=== PATIENT | male | born 1955 | race Caucasian/White ===

== ENCOUNTER 2017-01-06 08:12 | Emergency (ER) | payer OTHER ==
--- NOTE | 2017-01-06 08:39 | UC ---
Respiratory Complaint HPI - HPI Summary HPI Summary: 61 YO MAKE WITH ONE MONTH HX OF SINUS PRESSURE AND PAIN/POST NASAL DRIP AND RUNNY NOSE NOW WHEEZING AT NIGHT NO F/C NO CP NO SOB - History of Current Complaint Chief Complaint: UCGeneralIllness Stated Complaint: SINUS COMPLAINT Time Seen by Provider: 01/06/17 08:30 Hx Obtained From: Patient Onset/Duration: Gradual Onset, Lasting Weeks Timing: Constant Severity Initially: Mild Severity Currently: Mild Pain Intensity: 3 Pain Scale Used: 0-10 Numeric Character: Cough: Nonproductive Aggravating Factors: Allergens Alleviating Factors: Bronchodilator Associated Signs And Symptoms: Positive: Wheezing, Nasal Congestion, Sinus Discomfort Related History: Seasonal Allergies - Allergies/Home Medications Allergies/Adverse Reactions: Allergies Allergy/AdvReac Type Severity Reaction Status Date / Time No Known Allergies Allergy Verified 01/06/17 08:17 Home Medications: Home Medications Albuterol HFA INHALER* [Ventolin HFA Inhaler*] 2 puff QID PRN 01/06/17 [History Confirmed 01/06/17] Epinephrine [Epipen 2-Italo] 1 inj 01/06/17 [History] PMH/Surg Hx/FS Hx/Imm Hx Cardiovascular History: Hypertension Respiratory History: Bronchitis - Surgical History Surgical History: Yes Surgery Procedure, Year, and Place: tonsillectomy - Social History Alcohol Use: None Substance Use Type: None Smoking Status (MU): Never Smoked Tobacco - Immunization History Most Recent Influenza Vaccination: 2015 Most Recent Tetanus Shot: UTD Most Recent Pneumonia Vaccination: N/A Review of Systems Constitutional: Fatigue Skin: Negative Eyes: Negative ENT: Sore Throat, Nasal Discharge Respiratory: Cough Cardiovascular: Negative Gastrointestinal: Negative Genitourinary: Negative Motor: Negative Neurovascular: Negative Musculoskeletal: Negative Neurological: Negative Psychological: Negative All Other Systems Reviewed And Are Negative: Yes Physical Exam Triage Information Reviewed: Yes Appearance: Well-Appearing, No Pain Distress, Well-Nourished Vital Signs: Initial Vital Signs Temp 96.9 F 01/06/17 08:18 Pulse 99 01/06/17 08:18 Resp 20 01/06/17 08:18 BP 158/91 01/06/17 08:18 Pulse Ox 95 01/06/17 08:18 Vital Signs Reviewed: Yes Eyes: Positive: Conjunctiva Clear ENT: Positive: Hearing grossly normal, Nasal congestion, Nasal drainage, TMs normal. Negative: Tonsillar exudate, Trismus, Muffled/hoarse voice Dental Exam: Normal Neck: Positive: Supple, Nontender, No Lymphadenopathy Respiratory: Positive: No respiratory distress, No accessory muscle use, Wheezing - WITH FORCED EXPIRATION Cardiovascular: Positive: RRR, No Murmur, Pulses Normal. Negative: Tachycardia , Bradycardia Musculoskeletal: Positive: ROM Intact Neurological: Positive: Alert, Muscle Tone Normal Psychological Exam: Normal Skin Exam: Normal UC Diagnostic Evaluation - Laboratory O2 Sat by Pulse Oximetry: 95 - NORMAL/NOT HYPOXIC Respiratory Course/Dx - Differential Dx/Diagnosis Provider Diagnoses: ACUTE SINUSITIS. BRONCHITIS WITH BRONCHOSPASM Discharge - Discharge Plan Condition: Stable Disposition: HOME Prescriptions: Amoxicillin (*) [Amoxicillin 875 MG (*)] 875 mg PO BID #20 tab Prednisone [Deltasone] 40 mg PO DAILY #10 tab Patient Education Materials: Sinusitis (ED), Acute Bronchitis (ED) Referrals: Blair Thomas MD [Primary Care Provider] - 4 Days (IF NOT BETTER)
[2017-01-06 08:48] VITALS: BP 158/91
== END 2017-01-06 08:53 | disposition home or self-care (01) ==
LOC: UCCORT 08:12
DX: J01.90 Acute sinusitis, unspecified (principal); J20.9 Acute bronchitis, unspecified; I10 Essential (primary) hypertension
CPT/HCPCS: 99212; G0463

== ENCOUNTER 2018-02-13 10:50 | Emergency (ER) | payer OTHER ==
[2018-02-13 11:10] VITALS: BP 144/80
--- NOTE | 2018-02-13 11:56 | RAD ---
INDICATION: Left ankle pain. TECHNIQUE: 3 views of the left ankle were obtained. FINDINGS: Soft tissue swelling is noted along the anterolateral aspect of the ankle. No fracture is seen. Joint spaces appear maintained. IMPRESSION: SOFT TISSUE SWELLING, NO FRACTURE IS SEEN.
--- NOTE | 2018-02-13 12:08 | UC ---
Lower Extremity/Ankle HPI - HPI Summary HPI Summary: left ankle pain x 3 weeks cannot recall any injuries , pain became worse yesterday at work + swelling, no redness , - History of Current Complaint Chief Complaint: UCLowerExtremity Stated Complaint: W/C-LFT ANKLE INJURY Time Seen by Provider: 02/13/18 11:13 Hx Obtained From: Patient Onset/Duration: Gradual Onset, Lasting Weeks - 3, Still Present, Worse Since - yesterday Severity Initially: Moderate Severity Currently: Moderate Pain Intensity: 6 Aggravating Factor(s): Standing, Ambulation Alleviating Factor(s): Rest, Elevation, Ice Able to Bear Weight: Yes - Allergies/Home Medications Allergies/Adverse Reactions: Allergies Allergy/AdvReac Type Severity Reaction Status Date / Time No Known Allergies Allergy Verified 02/13/18 11:01 Home Medications: Home Medications Aspirin [Tash Childrens Aspirin] 81 mg PO DAILY 02/13/18 [History Confirmed 05/24] Ibuprofen TAB* [Advil TAB*] 400 mg PO Q12H PRN 02/13/18 [History Confirmed 02/13] PMH/Surg Hx/FS Hx/Imm Hx Cardiovascular History: Hypertension - Surgical History Surgical History: Yes Surgery Procedure, Year, and Place: tonsillectomy, LYMPH NODES REMOVED FROM NECK. - Family History Known Family History: Positive: Hypertension - Social History Alcohol Use: None Substance Use Type: None Smoking Status (MU): Current Every Day Smoker Type: Smokeless Tobacco Amount Used/How Often: 1 can weekly - Immunization History Most Recent Influenza Vaccination: 2016 Most Recent Tetanus Shot: UTD Most Recent Pneumonia Vaccination: N/A Review of Systems Constitutional: Negative Skin: Negative Eyes: Negative ENT: Negative Respiratory: Negative Is Patient Immunocompromised?: No All Other Systems Reviewed And Are Negative: Yes Physical Exam Triage Information Reviewed: Yes Appearance: Well-Appearing, No Pain Distress, Well-Nourished Vital Signs: Initial Vital Signs Temp 97.6 F 02/13/18 11:03 Pulse 99 02/13/18 11:03 Resp 18 02/13/18 11:03 BP 144/80 02/13/18 11:03 Pulse Ox 97 02/13/18 11:03 Vital Signs Reviewed: Yes Eye Exam: Normal Eyes: Positive: Conjunctiva Clear ENT: Positive: Normal ENT inspection, Hearing grossly normal, Pharynx normal Neck exam: Normal Respiratory Exam: Normal Respiratory: Positive: Chest non-tender, Lungs clear, Normal breath sounds Cardiovascular: Positive: RRR, No Murmur, Pulses Normal Musculoskeletal: Positive: Other: - left ankle : + swelling, no erythema, + diffuse tenderness, good ROM on flexion Diagnostics - Laboratory Diagnostic Studies Completed/Ordered: left ankle xray : IMPRESSION: SOFT TISSUE SWELLING, NO FRACTURE IS SEEN. Lower Extremity Course/Dx - Differential Dx/Diagnosis Provider Diagnoses: left ankle pain Discharge - Sign-Out/Discharge Documenting (check all that apply): Discharge/Admit/Transfer - Discharge Plan Condition: Stable Disposition: HOME Prescriptions: Indomethacin CAP* [Indocin CAP*] 50 mg PO TID PRN #15 cap PRN Reason: Pain Patient Education Materials: Arthralgia (ED) Referrals: Alex Soliz MD [Primary Care Provider] - 7 Days - Billing Disposition and Condition Condition: STABLE Disposition: Home
== END 2018-02-13 12:09 | disposition home or self-care (01) ==
LOC: UCCORT 10:50
DX: M25.572 Pain in left ankle and joints of left foot (principal); M25.472 Effusion, left ankle; I10 Essential (primary) hypertension; F17.290 Nicotine dependence, other tobacco product, uncomplicated
CPT/HCPCS: 99212; G0463

== ENCOUNTER 2018-12-17 13:42 | Emergency (ER) | payer BC ==
[2018-12-17 13:58] VITALS: BP 156/94
[2018-12-17] MEDS ORDERED: Aspirin 81 mg CHEW TAB* 81 MG TAB.CHEW PO ONE (14:34)
--- NOTE | 2018-12-17 14:39 | UC ---
Cardiac HPI - HPI Summary HPI Summary: 63 yo male presents here for unusual set of symptoms He works third shift Last PM he had chest pain/pressure from about 9-10 PM. He was cold and clammy during this He started feeling better and went to brush his teeth. His toothpaste dripped out of the right side of his mouth when he tried to spit. A little after 10 PM when he arrive at work a co worker remarked his RIGHT eye was not opening all the way The patient states he was not able to fully open his eye for a while About 2 hour before arrival here he noticed left facial droop and numbness He denies any PRABHAKAR but has some pain behind his left ear no eye pain or photophobia has had no CP today - History of Current Complaint Chief Complaint: UCGeneralIllness Stated Complaint: LEFT SIDE NUMBNESS Time Seen by Provider: 12/17/18 14:12 Hx Obtained From: Patient Onset/Duration: Gradual Onset, Lasting Hours Timing: Constant Initial Severity: Moderate Current Severity: None Pain Intensity: 0 Chest Pain Location: Diffuse Aggravating Factor(s): Nothing Alleviating Factor(s): Rest Associated Signs & Symptoms: Positive: Chest Pain - resolved about 10 PM, Numbness - Left face...started about 2 hours ago, Diaphoresis - with CP. Negative: Vision Changes, Anxiety, Recent Stress, Headaches, Weakness, Dizziness , SOB, Swelling, Syncope, Fever, Nausea/Vomiting, Palpitations, Cough, Hemoptysis, Back Pain, Abdominal Pain, Calf Pain/Swelling - Allergy/Home Medications Allergies/Adverse Reactions: Allergies Allergy/AdvReac Type Severity Reaction Status Date / Time bee venom protein (honey bee) Allergy Swelling Verified 12/17/18 13:52 Of Face,Lips,& Throat Home Medications: Home Medications Allopurinol 100 mg PO DAILY 12/17/18 [History Confirmed 12/17/18] PMH/Surg Hx/FS Hx/Imm Hx Previously Healthy: Yes - gout Endocrine History: Diabetes Cardiovascular History: Hypertension - Surgical History Surgical History: Yes Surgery Procedure, Year, and Place: tonsillectomy, LYMPH NODES REMOVED FROM NECK. - Family History Known Family History: Positive: Hypertension - Social History Alcohol Use: None Substance Use Type: None Smoking Status (MU): Current Every Day Smoker Type: Smokeless Tobacco Amount Used/How Often: 1 can weekly - Immunization History Most Recent Influenza Vaccination: 2016 Most Recent Tetanus Shot: UTD Most Recent Pneumonia Vaccination: N/A Review of Systems All Other Systems Reviewed And Are Negative: Yes Constitutional: Positive: Negative Skin: Positive: Negative Eyes: Positive: Negative ENT: Positive: Negative Respiratory: Positive: Negative Cardiovascular: Positive: Chest Pain - resolve last pm Gastrointestinal: Positive: Negative Genitourinary: Positive: Negative Motor: Positive: Negative Neurological: Positive: Numbness - left facial numbness and droop Psychological: Positive: Negative Physical Exam Triage Information Reviewed: Yes Appearance: Well-Appearing, No Pain Distress, Other: - BMI 35 Vital Signs: Initial Vital Signs Temp 98.3 F 12/17/18 13:44 Pulse 86 12/17/18 13:44 Resp 20 12/17/18 13:44 BP 156/94 12/17/18 13:44 Pulse Ox 95 12/17/18 13:44 Vital Signs Reviewed: Yes Eyes: Positive: Other: - EOMI/PERRL ENT: Positive: TMs normal, Uvula midline. Negative: Nasal congestion, Nasal drainage, Trismus, Muffled voice, Hoarse voice Neck: Positive: Supple, Nontender, No Lymphadenopathy Respiratory: Positive: Lungs clear, Normal breath sounds, No respiratory distress, No accessory muscle use. 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 His neuro exam now is C/W a peripheral L facial palsy I have no explanation for what sounds like a R 3 rd nerve palsy that happened last PM. I suggested he be evaluated in an ER for his constellation of symptoms He declines transfer to [facility] ER. He has been to [facility] in the past and desires to go there He declines transfer via EMS His will drive him Given 4 baby asa here - Clinical Impression Provider Diagnosis: Chest pain of uncertain etiology, Facial nerve palsy Discharge - Sign-Out/Discharge Documenting (check all that apply): Patient Departure All imaging exams completed and their final reports reviewed: No Studies - Discharge Plan Condition: Guarded Disposition: HOME-RECOMMEND TO ED Referrals: No Primary Care Phys,NOPCP [Primary Care Provider] - Additional Instructions: I suggest you go straight to [facility] ER for evaluation of your symptoms They are expecting you - Billing Disposition and Condition Condition: GUARDED Disposition: Home-Recommend to ED
== END 2018-12-17 14:48 | disposition home health service (06) ==
LOC: UCCORT 13:42
DX: G51.0 Bell's palsy (principal); R07.9 Chest pain, unspecified; E11.9 Type 2 diabetes mellitus without complications; I10 Essential (primary) hypertension; F17.210 Nicotine dependence, cigarettes, uncomplicated; Z91.030 Bee allergy status
CPT/HCPCS: 93005; 99212; A9270-GY; G0463

== ENCOUNTER → 2018-12-17 15:34 | Emergency (ER) | payer BC ==
[~2018-12-17 15:34] MED LIST: DOXYcycline CAP(*) 100 MG PO ONE; predniSONE TAB* 20 MG PO ONE
--- NOTE | 2018-12-17 15:48 | ED ---
Neurological HPI - HPI Summary HPI Summary: A 63 y/o M arrives by car for [facility] presents to ED with sudden-onset, L-sided facial numbness onset approx 1000. Patient was at home watching TV at onset of sx. Associated sx: LLE weakness, diaphoresis last night. Patient denies any fevers or illness in the past 3-4 months. He has been outdoors a lot more recently mowing the lawn. He has a cat; and a dog that previously got Lyme. His states she has seen ticks around the home lately, but patient has not found any on himself. Smoker. - History of Current Complaint Stated Complaint: FACE NUMBNESS PER PT Hx Obtained From: Patient, Family/Floor Layer Helper - Onset/Duration: Sudden Onset, Started hours ago, Still Present Timing: Constant Onset Severity: Moderate Current Severity: Moderate Neurological Deficit Location: Facial - L Character: Numbness/Tingling - L face Associated Signs and Symptoms: Positive: Weakness - LLE, Diaphoresis. Negative : Fever - Allergy/Home Medications Allergies/Adverse Reactions: Allergies Allergy/AdvReac Type Severity Reaction Status Date / Time bee venom protein (honey bee) Allergy Swelling Verified 12/17/18 13:52 Of Face,Lips,& Throat Home Medications: Home Medications Allopurinol TAB* [Zyloprim 100 MG TAB*] 100 mg PO DAILY 12/17/18 [History Confirmed 12/17/18] Hydrochlorothiazide TAB* [Hydrodiuril TAB*] 25 mg PO DAILY 12/17/18 [History Confirmed 12/17/18] Rosuvastatin (NF) [Crestor (NF)] 10 mg PO QPM 12/17/18 [History Confirmed ] PMH/Surg Hx/FS Hx/Imm Hx Previously Healthy: No Endocrine/Hematology History: Reports: Hx Diabetes Cardiovascular History: Reports: Hx Hypertension Denies: Hx Pacemaker/ICD History: Denies: Hx Renal Disease Sensory History: Denies: Hx Hearing Aid Psychiatric History: Reports: Hx Panic Disorder - ANXIETY - Surgical History Surgery Procedure, Year, and Place: tonsillectomy, LYMPH NODES REMOVED FROM NECK. - Family History Known Family History: Positive: Hypertension - Social History Occupation: Employed Full-time Lives: With Family Alcohol Use: None Hx Substance Use: No Substance Use Type: Reports: None Hx Tobacco Use: Yes Smoking Status (MU): Current Every Day Smoker Type: Smokeless Tobacco Amount Used/How Often: 1 can weekly Review of Systems Positive: Skin Diaphoresis. Negative: Fever Positive: Weakness - LLE, Numbness - L-sided facial All Other Systems Reviewed And Are Negative: Yes Physical Exam - Summary Physical Exam Summary: Appearance: Well-appearing, Well-nourished, lying in bed comfortably Skin: Warm, dry, no obvious rash Eyes: sclera anicteric, no conjunctival pallor ENT: mucous membranes moist, pharynx appears normal Neck: Supple, nontender Respiratory: Clear to auscultation, no signs of respiratory distress Cardiovascular: Normal S1, S2. No murmurs. Normal distal pulses in tibial and radial bilaterally. Abdomen: Soft, nontender, normal active bowel sounds present Musculoskeletal: Normal, Strength/ROM Intact, Motor function in all 4 extremities is normal and symmetric. There is no rigidity or tremor noted. Neurological: A&Ox3, awake and alert, mentation is normal, speech is fluent and appropriate, Level of consciousness nml. The patient is alert and oriented. Cranial nerves are grossly intact. Gaze is conjugate and without nystagmus. Peripheral vision is intact to confrontation. There are no gross sensory abnormalities to light touch. There is no truncal or fine motor ataxia. Gait is normal. There is facial weakness on L of a peripheral type with inclusion of the forehead. Psychiatric: affect is normal, does not appear anxious or depressed Triage Information Reviewed: Yes Vital Signs Reviewed: Yes Diagnostics - Laboratory Result Diagrams: 12/17/18 16:18 12/17/18 16:18 Lab Statement: Any lab studies that have been ordered have been reviewed, and results considered in the medical decision making process. - EKG 1602 Cardiac Rate: NL - 81bpm EKG Rhythm: Sinus Rhythm Summary of EKG Findings: Inferior Q waves, small. Re-Evaluation - Re-Evaluation 1 Re-Evaluation Time: 17:19 Change: Unchanged Comment: Discussing results with patient and plans to discharge. Course/Dx - Course Course Of Treatment: Pt is a 63 y/o M presenting with sudden-onset, L-sided facial numbness at approx 1000. Associated sx: LLE weakness, diaphoresis last night. Patient denies any fevers or illness in the past 3-4 months. A 63 y/o M arrives by car for [facility] presents to ED with sudden-onset, L-sided facial numbness onset approx 1000. Patient was at home watching TV at onset of sx. Associated sx: LLE weakness, diaphoresis last night. Patient denies any fevers or illness in the past 3-4 months. He has been outdoors a lot more recently; has a dog that previously got Lyme. Ticks have been found around the home lately. PE finds patient neurologically intact except there is facial weakness on L of a peripheral type with inclusion of the forehead. Lab work is without significant abnormality. Will discharge patient home with Doxy and Prednisone, to f/u with his PCP. - Diagnoses Provider Diagnoses: Newman's palsy Discharge - Sign-Out/Discharge Documenting (check all that apply): Patient Departure - D/C Patient Received Moderate/Deep Sedation with Procedure: No - Discharge Plan Condition: Good Disposition: HOME Prescriptions: DOXYcycline CAP(*) [DOXYcycline 100MG CAP(*)] 100 mg PO BID #40 cap predniSONE [Prednisone 20 MG TAB] 40 mg PO DAILY #14 tablet Patient Education Materials: Newman Palsy (ED) Referrals: Avery Angulo MD [Medical Doctor] - Additional Instructions: This problem will likely take several weeks to heal, and you may be left with some residual weakness. However it is the very rare patient that does not significantly improve over time. - Billing Disposition and Condition Condition: GOOD Disposition: Home - Attestation Statements Document Initiated by Tammie: Yes Documenting Scribe: Amy Andrade Provider For Whom Nicholasibe is Documenting (Include Credential): Dr. Israel Bey MD Scribe Attestation: I, asha Diggs for Dr. Israel Bey MD on 12/18/18 at 1127. Scribe Documentation Reviewed: Yes Provider Attestation: The documentation as recorded by the Amy hunt accurately reflects the service I personally performed and the decisions made by me, Dr. Israel Bey MD Status of Scribe Document: Viewed
[2018-12-17 16:21] VITALS: BP 157/102
[2018-12-17 16:47] LABS: ABS Basophils 0.1 10^3/ul (0-0.2); ABS Eosinophils 0.2 10^3/ul (0-0.6); ABS Lymphocytes 1.9 10^3/ul (1.0-4.8); ABS Neutrophils 4.1 10^3/ul (1.5-7.7); Eosinophil % 2.2 %; Hematocrit 51 % (42-52); Hemoglobin 17.6 g/dL (14.0-18.0); Lymphocyte % 26.4 %; Mean Corpuscular HGB Conc 35 g/dL (31-36); Mean Corpuscular Hemoglobin 31 pg (27-31); Mean Corpuscular Volume 88 fL (80-94); Mean Platelet Volume 7.6 fL (7.4-10.4); Nucleated Red Blood Cells % 0.1; Platelet Count 249 10^3/uL (150-450); Red Blood Count 5.76 10^6 /uL (4.18-5.48); Red Cell Distribution Width 13 % (10.5-15); White Blood Count 7.3 10^3/uL (3.5-10.8)
[2018-12-17 16:53] LABS: Albumin 4.2 g/dL (3.2-5.2); Albumin/Globulin Ratio 1.5 (1-3); BUN/Creatinine Ratio 23.8 (8-20); Calcium 9.9 mg/dL (8.6-10.3); EGFR African American 118.1 (>60); EGFR Non-African American 97.6 (>60); Globulin 2.8 g/dL (2-4); Potassium 3.7 mmol/L (3.5-5.0); Total Bilirubin 0.7 mg/dL (0.2-1.0)
== END | disposition home or self-care (01) ==
LOC: ED 15:34
DX: G51.0 Bell's palsy (principal); E11.9 Type 2 diabetes mellitus without complications; I10 Essential (primary) hypertension; F17.220 Nicotine dependence, chewing tobacco, uncomplicated
CPT/HCPCS: 36415; 80053; 85025; 86618; 93005; 99283; A9270-GY; J7512

== ENCOUNTER 2019-09-17 11:54 | Emergency (ER) | payer BC ==
[2019-09-17 12:50] VITALS: BP 149/84
--- NOTE | 2019-09-17 13:00 | UC ---
Knee Pain HPI - HPI Summary HPI Summary: left knee pain x 6 weeks pain is 6 out of 10 , worse with walking / weight bearing better with rest, elevation + injury in early August 2019 , jammed his left knee as he was coming down his truck hx of meniscus tear left knee - History of Current Complaint Chief Complaint: UCLowerExtremity Stated Complaint: L KNEE INJ Time Seen by Provider: 09/17/19 12:46 Hx Obtained From: Patient Onset/Duration: Sudden Onset, Lasting Weeks - 6, Still Present Severity Initially: Moderate Severity Currently: Moderate Pain Intensity: 5 Character: Sharp, Aching Aggravating Factor(s): Movement, Weight Bearing, Prolonged Standing Alleviating Factor(s): Rest Associated Signs And Symptoms: Positive: Swelling, Weakness. Negative: Redness , Bruising, Fever, Numbness, Tingling Able to Bear Weight: Yes - Allergies/Home Medications Allergies/Adverse Reactions: Allergies Allergy/AdvReac Type Severity Reaction Status Date / Time bee venom protein (honey bee) Allergy Swelling Verified 09/17/19 12:50 Of Face,Lips,& Throat Home Medications: Home Medications Cyanocobalamin TAB* [Vitamin B12 TAB*] 500 mg PO DAILY 09/17/19 [History Confirmed 09/17/19] Naproxen Sodium [Aleve] 220 mg PO BID PRN 09/17/19 [History Confirmed 09/17/19] PMH/Surg Hx/FS Hx/Imm Hx Endocrine History: Diabetes Cardiovascular History: Hypertension - Surgical History Surgical History: Yes Surgery Procedure, Year, and Place: tonsillectomy, LYMPH NODES REMOVED FROM NECK. - Family History Known Family History: Positive: Hypertension - Social History Alcohol Use: None Substance Use Type: None Smoking Status (MU): Current Every Day Smoker Type: Smokeless Tobacco Amount Used/How Often: 1 can weekly - Immunization History Most Recent Influenza Vaccination: 2016 Most Recent Tetanus Shot: UTD Most Recent Pneumonia Vaccination: N/A Review of Systems All Other Systems Reviewed And Are Negative: Yes Is Patient Immunocompromised?: No Physical Exam Triage Information Reviewed: Yes Appearance: Well-Appearing, No Pain Distress, Obese Vital Signs: Initial Vital Signs Temp 97.4 F 09/17/19 12:42 Pulse 87 09/17/19 12:42 Resp 16 09/17/19 12:42 BP 149/84 09/17/19 12:42 Pulse Ox 97 09/17/19 12:42 Vital Signs Reviewed: Yes Eye Exam: Normal Eyes: Positive: Conjunctiva Clear ENT: Positive: Normal ENT inspection, Hearing grossly normal, Pharynx normal Neck: Positive: Supple Respiratory: Positive: Chest non-tender, Lungs clear, Normal breath sounds Cardiovascular: Positive: RRR, No Murmur, Pulses Normal Musculoskeletal: Positive: Other: - left knee: mild swelling, mild effusion, diffuse tenderness , good ROM on flexion and extension, + [facility] - Radiology No standard instances Radiology Interpretation Completed By: Radiologist Summary of Radiographic Findings: xray report left knee : 4 views of left knee are reviewed. There is no fracture or dislocation. No other bone or joint abnormality is noted. No joint effusion is noted. IMPRESSION: Unremarkable left knee. Knee Pain Course/Dx - Differential Dx/Diagnosis Provider Diagnosis: Left knee pain Discharge ED - Sign-Out/Discharge Documenting (check all that apply): Patient Departure All imaging exams completed and their final reports reviewed: Yes - Discharge Plan Condition: Stable Disposition: HOME Patient Education Materials: Knee Pain (ED), Meniscus Tear (ED) Referrals: Eric Patel MD [Medical Doctor] - As Soon As Possible Vida Husain MD [Primary Care Provider] - - Billing Disposition and Condition Condition: STABLE Disposition: Home
== END 2019-09-17 13:39 | disposition home or self-care (01) ==
LOC: UCCORT 11:54
DX: M25.562 Pain in left knee (principal); E11.9 Type 2 diabetes mellitus without complications; I10 Essential (primary) hypertension; F17.290 Nicotine dependence, other tobacco product, uncomplicated; W23.0XXD Caught, crushed, jammed, or pinched between moving objects, subsequent encounter; Z91.030 Bee allergy status
CPT/HCPCS: 99211; G0463